=== PATIENT | female | born 1955 | race Hispanic/Latino ===

== ENCOUNTER 2017-08-09 19:23 | Emergency (ER) | payer MEDICARE, BC ==
[~2017-08-09] VITALS: Ht 165.1 cm; Wt 72.6 kg
[2017-08-09 21:43] VITALS: BP 145/72
== END 2017-08-09 21:15 | disposition home or self-care (01) ==
LOC: FSED 19:23
PROC: 2W3QX1Z Immobilization of Right Lower Leg using Splint (ICD-10-PCS; principal; 2017-08-09)
DX: S63.591A Other specified sprain of right wrist, initial encounter (principal); S82.64XA Nondisplaced fracture of lateral malleolus of right fibula, initial encounter for closed fracture; W11.XXXA Fall on and from ladder, initial encounter; Y92.008 Other place in unspecified non-institutional (private) residence as the place of occurrence of the external cause
CPT/HCPCS: 99283

== ENCOUNTER → 2017-08-22 | Outpatient (CLI) | payer MEDICARE, BC ==
--- NOTE | 2017-08-22 19:28 | Diagnostic Imaging Report ---
Exam: Brain MRI without IV contrast History: Severe headache, previous fall from ladder on 08/09, syncope Comparison studies: None Technique: Sagittal and axial T2 FS, axial DWI, axial coronal T2 FLAIR and axial T2*GRE. Intravenous contrast: None Findings: Scalp: Normal in signal. No masses. Bone marrow: In normal in signal intensity. Brain sulci: Appropriate for age. Ventricles: Normal in size. No hydrocephalus. Extra axial spaces: A 2.9 cm AP x 0.5 cm TV T1/T2 FLAIR hyperintense focus which otherwise follow fat density on all pulse sequences is most compatible with an incidental lipoma or ossification along the falx which does not result in significant mass effect. Small subdural hematoma in the early subacute phase is felt to be a less likely consideration. Parenchyma: No mass, hemorrhage or acute ischemia. No abnormal signal intensities. Suprasellar region: No abnormalities. Craniocervical junction: Patent foramen magnum. No Chiari malformation. Vessels: Normal flow-voids in the arteries and sinuses. Incidental findings: Mildly degenerated C3-C4 disc with disc osteophyte complex which indents the thecal sac and results in at least mild canal stenosis (cannot further evaluate on this exam. IMPRESSION: 1. Small focal T1 hyperintensity along the falx as described without significant mass effect is favored to be an incidental small dural ossification or lipoma. Small subacute subdural hematoma is felt to be a less likely consideration, moreover noncontrast head CT could best further evaluate. 2. Otherwise, no intracranial abnormalities. 3. Incidental degenerative cervical spinal canal stenosis at C3-C4. Signed by: Dr. Salbador Maldonado M.D. on 08/22/2017 7:24 PM
== END ==
LOC: MRI 14:00
PROVIDERS: ATTEND Internal Medicine
DX: R51 Headache (principal); R55 Syncope and collapse; W11.XXXA Fall on and from ladder, initial encounter; M48.02 Spinal stenosis, cervical region
CPT/HCPCS: 70551